=== PATIENT | female | born 1990 ===

== ENCOUNTER 2016-05-28 13:08 | Emergency (ER) | payer MEDICAID ==
[2016-05-28 13:13] VITALS: TEMP 98; BMI 22.4
--- NOTE | 2016-05-28 13:42 | ED PDOC ---
HPI: General Adult Time Seen by Provider: 05/28/16 13:19 Chief Complaint (Nursing): Abdominal Pain Chief Complaint (Provider): with abdominal pain History Per: Patient Additional Complaint(s): Patient is , currently 9 weeks and presents to emergency department with left flank pain that radiates to left lower quadrant that started earlier today. Patient states that last week she had similar symptoms and they lasted about 30 minutes and then resolved. Today is the second recurrence of this pain. She denies any vaginal bleeding, hematuria or dysuria. Patient has had intermittent nausea since beginning of and vomited twice but is able to tolerate liquids and solids. She rates current pain as a 6 out of 10. Past Medical History Reviewed: Historical Data, Nursing Documentation, Vital Signs Vital Signs: Last Vital Signs Temp 98 F 05/28/16 13:12 Pulse 75 05/28/16 13:12 Resp BP 121/59 L 05/28/16 13:12 Pulse Ox 99 05/28/16 14:30 - Medical History PMH: No Chronic Diseases - Surgical History Surgical History: No Surg Hx - Family History Family History: States: No Known Family Hx - Living Arrangements Living Arrangements: With Family - Social History Current smoker - smoking cessation education provided: No Alcohol: None Drugs: Denies - Home Medications Home Medications: Ambulatory Orders Medication Instructions Recorded Nitrofurantoin Macrocrystals 100 mg PO BID #20 tab 05/28/16 [Macrobid] - Allergies Allergies/Adverse Reactions: Allergies Allergy/AdvReac Type Severity Reaction Status Date / Time No Known Allergies Allergy Verified 05/28/16 13:41 Review of Systems ROS Statement: Except As Marked, All Systems Reviewed And Found Negative Constitutional: Negative for: Fever Genitourinary Female: Positive for: Pelvic Pain. Negative for: Dysuria, Frequency, Hematuria, Vaginal Discharge, Vaginal Bleeding Musculoskeletal: Positive for: Back Pain (left flank) Physical Exam - Reviewed Nursing Documentation Reviewed: Yes Vital Signs Reviewed: Yes - Physical Exam Appears: Positive for: Well, Non-toxic, No Acute Distress Skin: Negative for: Rash Eye Exam: Positive for: Normal appearance, EOMI, PERRL Cardiovascular/Chest: Positive for: Regular Rate, Rhythm Respiratory: Positive for: Normal Breath Sounds Gastrointestinal/Abdominal: Positive for: Tenderness (suprapubic tenderness with no rebound or guarding). Negative for: Distended, Guarding, Rebound Back: Positive for: L CVA Tenderness (mild). Negative for: R CVA Tenderness, Vertebral Tenderness Extremity: Negative for: Pedal Edema Neurologic/Psych: Positive for: Alert, Oriented - Laboratory Results Result Diagrams: 05/28/16 13:50 05/28/16 13:50 Urine POC: Positive Urine dip results: Positive for: Leukocyte Esterase (small), Blood (trace). Negative for: Nitrate, Ketones, Glucose, Bilirubin, Protein - ECG O2 Sat by Pulse Oximetry: 99 Pulse Ox Interpretation: Normal - Other Rad OB Transvaginal US X-Ray: Read By Radiologist X-Ray Interpretation: see below Medical Decision Making Medical Decision Makin25 year old, 9 weeks with abdominal pain. Plan: CBC CMP Beta quant OB US IVF Urine dip US: IMPRESSION: Single live intrauterine gestation with mean gestational age of 12 weeks and 6 days. The expected date of delivery by ultrasound is 2016. There is a discrepancy of about 2 weeks with the clinical dates. Clinical follow-up is advised. Patient is aware of all diagnostic testing results, all questions answered. Patient given prescription for Macrobid and was instructed in plenty fluids. She was advised she can take Tylenol as needed for pain. [facility] Disposition - Clinical Impression Clinical Impression: Abdominal pain during , Urinary tract infection - Patient ED Disposition Is Patient to be Admitted: No Counseled Patient/Family Regarding: Studies Performed, Diagnosis, Need For Followup, Rx Given - Disposition [facility] Disposition: Routine/Home Disposition Time: 17:03 Condition: STABLE Additional Instructions: Take prescription meds as directed. Plenty of fluids. Tylenol for pain as needed. Follow-up with manager corporate in 1-2 days. Prescriptions: Nitrofurantoin Macrocrystals [Macrobid] 100 mg PO BID #20 tab Instructions: Urinary Tract Infection in Women (ED), Abdominal Pain in (ED) Results - Lab Results Lab Results: 05/28/16 05/28/16 13:50 13:45 WBC 8.1 RBC 4.00 Hgb 11.7 L Hct 34.7 MCV 86.8 MCH 29.4 MCHC 33.8 RDW 13.2 Plt Count 175 MPV 9.4 Neut % (Auto) 70.2 Lymph % (Auto) 19.5 L [place] % (Auto) 8.7 Eos % (Auto) 1.0 Baso % (Auto) 0.6 Neut # 5.7 Lymph # 1.6 [place] # 0.7 Eos # 0.1 Baso # 0.0 Sodium 137 Potassium 4.9 Chloride 104 Carbon Dioxide 20 L Anion Gap 18 BUN 8 Creatinine 0.5 L Est GFR ( Amer) > 60 Est GFR (Non-Af Amer) > 60 Random Glucose 93 Calcium 9.1 Total Bilirubin 1.2 AST 50 H ALT 18 Alkaline Phosphatase 72 Total Protein 7.6 Albumin 3.9 Globulin 3.7 Albumin/Globulin Ratio 1.1 Beta HCG, Quant 486261.00 Urine Color Yellow Urine Clarity Cloudy Urine pH 7.0 Ur Specific [place] 1.012 Urine Protein 30 Urine Glucose (UA) Neg Urine Ketones Negative Urine Blood Negative Urine Nitrate Negative Urine Bilirubin Negative Urine Urobilinogen 0.2-1.0 Ur Leukocyte Esterase Large Urine Microscopic WBC 85 H Ur Squamous Epith Cells 23 H Calcium Oxalate Crystal Few H Urine Bacteria Rare Hyaline Casts 3-5 H Urine Sperm (Auto) Rare H
[2016-05-28] MEDS ORDERED: Sodium Chloride 0.9% 1,000 ML IV STA (13:44)
[2016-05-28 14:13] LABS: EOS # 0.1 K/uL (0.0-0.7); MONO # 0.7 K/uL (0.0-0.8)
[2016-05-28 14:18] LABS: BASO % 0.6 % (0.0-2.0); HEMATOCRIT 34.7 % (34.0-47.0); LYMPH # 1.6 K/uL (1.0-4.3); LYMPH % 19.5 % (20.0-40.0); MEAN CELL VOLUME 86.8 fl (81.0-99.0); MEAN CORPUSCULAR HEMOGLOBIN 29.4 pg (27.0-31.0); MEAN CORPUSCULAR HGB CONC 33.8 g/dL (33.0-37.0); MEAN PLATELET VOLUME 9.4 fl (7.2-11.7); MONO % 8.7 % (0.0-10.0); NEUT # 5.7 K/uL (1.8-7.0); NEUT % 70.2 % (50.0-75.0); NRBC % 0.1 % (0.0-0.0); RED CELL DISTRIBUTION WIDTH 13.2 % (11.5-14.5); WHITE BLOOD COUNT 8.1 K/uL (4.8-10.8)
[2016-05-28 14:18] LABS: URINE BILIRUBIN NEGATIVE (NEGATIVE); URINE BLOOD NEGATIVE (NEGATIVE); URINE CALCIUM OXALATE CRYSTALS FEW /hpf (<OCC); URINE COLOR YELLOW (YELLOW); URINE GLUCOSE (UA) NEG (Normal); URINE KETONE NEGATIVE (NEGATIVE); URINE LEUKOCYTE ESTERASE LARGE Leu/uL (Negative); URINE PROTEIN 30 mg/dL (NEGATIVE); URINE UROBILINOGEN 0.2-1.0 mg/dL (0.2-1.0); WBC URINE 85 /hpf (0-5)
[2016-05-28 14:20] LABS: URINE BACTERIA RARE (<OCC)
[2016-05-28 14:23] LABS: ALB/GLOB RATIO 1.1 (1.0-2.1); ALKALINE PHOSPHATASE 72 U/L (38-126); ALT/SGPT 18 U/L (9-52); AST/SGOT 50 U/L (14-36); BILIRUBIN,TOTAL 1.2 mg/dl (0.2-1.3); BLOOD UREA NITROGEN 8 mg/dl (7-17); CALCIUM 9.1 mg/dL (8.4-10.2); CARBON DIOXIDE 20 mmol/L (22-30); CHLORIDE 104 mmol/L (98-107); GFR AFRICAN-AMERICAN > 60; GLUCOSE,RANDOM 93 mg/dL (65-105); SODIUM 137 mmol/l (132-148); TOTAL PROTEIN 7.6 G/DL (6.3-8.2)
[2016-05-28 14:26] LABS: POTASSIUM 4.9 MMOL/L (3.6-5.0)
--- NOTE | 2016-05-28 16:55 | US ---
PROCEDURE: OB Pelvic Ultrasound HISTORY: with abdominal pain COMPARISON: None available. FINDINGS: UTERUS: Gestational sac: Single intrauterine gestation. Heart rate: 155 bpm. age (Ultrasound estimated): 12 weeks and 6 days Hilary-gestational hemorrhage: None. Date of delivery (Ultrasound estimated) : 12/04/2016 Uterus measures 11.9 x 9.5 x 10.4 cm. Normal in size and appearance. CERVIX: Long and closed. No cervical abnormality seen. RIGHT OVARY: Not visualized. LEFT OVARY: Not visualized. FREE FLUID: None. OTHER FINDINGS: None. IMPRESSION: Single live intrauterine gestation with mean gestational age of 12 weeks and 6 days. The expected date of delivery by ultrasound is 12/04/2016. There is a discrepancy of about 2 weeks with the clinical dates. Clinical follow-up is advised. S
[2016-05-28 17:08] VITALS: BP 120/80; PULSE 80; RESP 18
[2016-05-28 17:09] VITALS: O2SAT 99
== END 2016-05-28 17:10 | disposition home or self-care (01) ==
LOC: H.ER 13:08
DX: O23.40 Unspecified infection of urinary tract in pregnancy, unspecified trimester (principal)

== ENCOUNTER 2016-07-12 21:06 | Emergency (ER) | payer MEDICAID, OTHER ==
[2016-07-12 21:06] VITALS: BMI 22.4
[2016-07-12 21:11] VITALS: BP 127/74; PULSE 74; RESP 18; TEMP 98.7; O2SAT 100
--- NOTE | 2016-07-12 21:38 | ED PDOC ---
HPI: Female Pain Time Seen by Provider: 07/12/16 21:12 Chief Complaint (Nursing): Female Genitourinary Chief Complaint (Provider): , pelvic pain History Per: Patient History/Exam Limitations: no limitations Onset/Duration Of Symptoms: Days (2), Waxing/Waning Current Symptoms Are (Timing): Still Present Quality Of Discomfort: Sharp, "Pain" Associated Symptoms: Back Pain Additional History Per: Patient Additional Complaint(s): 26 y/o female, approx 18 weeks gestation, presents with intermittent left pelvic pain x 2 days. Associated low back pain. Denies fever, nausea/vomiting , chest pain, changes in bowel movements, dysuria, hematuria, vaginal bleeding/ discharge. Abnormal Vaginal Bleeding: No Last Menstral Period: 03/01/16 : 2 Para: 1 Miscarriage: 0 Past Medical History Reviewed: Historical Data, Nursing Documentation, Vital Signs Vital Signs: Last Vital Signs Temp 98.7 F 07/12/16 21:08 Pulse 74 07/12/16 21:08 Resp 18 07/12/16 21:08 BP 127/74 07/12/16 21:08 Pulse Ox 100 07/12/16 21:08 - Medical History PMH: No Chronic Diseases - Surgical History Surgical History: No Surg Hx - Family History Family History: States: Unknown Family Hx - Living Arrangements Living Arrangements: With Family - Home Medications Home Medications: Ambulatory Orders Medication Instructions Recorded Nitrofurantoin Macrocrystals 100 mg PO BID #20 tab 05/28/16 [Macrobid] Nitrofurantoin Macrocrystals 100 mg PO BID #13 cap 07/12/16 [Macrobid] - Allergies Allergies/Adverse Reactions: Allergies Allergy/AdvReac Type Severity Reaction Status Date / Time No Known Allergies Allergy Verified 05/28/16 13:41 Review of Systems ROS Statement: Except As Marked, All Systems Reviewed And Found Negative Genitourinary Female: Positive for: Pelvic Pain Physical Exam - Reviewed Nursing Documentation Reviewed: Yes Vital Signs Reviewed: Yes - Physical Exam Appears: Positive for: Well, Non-toxic, No Acute Distress Head Exam: Positive for: ATRAUMATIC, NORMAL INSPECTION, NORMOCEPHALIC Skin: Positive for: Normal Color Eye Exam: Positive for: Normal appearance ENT: Positive for: Normal ENT Inspection Cardiovascular/Chest: Positive for: Regular Rate, Rhythm Respiratory: Positive for: Normal Breath Sounds Gastrointestinal/Abdominal: Positive for: Bowel Sounds, Soft, Tenderness ( suprapubic, left pelvic. No flank tenderness b/l) Back: Negative for: L CVA Tenderness, R CVA Tenderness Extremity: Positive for: Normal ROM Neurologic/Psych: Positive for: Alert, Oriented - Laboratory Results Result Diagrams: 07/12/16 21:44 07/12/16 21:44 - ECG O2 Sat by Pulse Oximetry: 100 - Progress ED Course And Treament: labs, urine, OB u/s EXAM: US Uterus, Limited CLINICAL HISTORY: 26 years old, female; Pain; Other: Lt pelvic pain; Gestational age or lmp: ; ; Additional info: Approx 18 wks preg, suprapubic/left pelvic pain TECHNIQUE: Real-time ultrasound of the maternal uterus (limited) with image documentation. COMPARISON: No relevant prior studies available. FINDINGS: Fetus: Single live intrauterine gestation. Estimated gestational age of 19 weeks 1 day by measurements. No gross anomaly is appreciated. Position: Variable. Heart rate: heart rate of 144 beats per minute. Placenta: Anterior placenta. No placenta previa or abruption. Amniotic fluid: Normal. Cervix: No cervical dilatation or effacement. Adnexa: Ovaries not visualized. No adnexal masses. Free fluid: No significant free fluid. IMPRESSION: 1. Single live intrauterine gestation. 2. Incidental/non-acute findings are described above. Patient educated on findings, discharged with rx macobid (dose given in ED) Advised follow up [employer] in 2-3 days. Return to ED for worsening/concerning symptoms. Disposition - Clinical Impression Clinical Impression: Urinary tract infection, Abdominal pain during - Patient ED Disposition Is Patient to be Admitted: No Counseled Patient/Family Regarding: Studies Performed, Diagnosis, Need For Followup, Rx Given - Disposition Disposition: Routine/Home Disposition Time: 23:21 Condition: STABLE Prescriptions: Nitrofurantoin Macrocrystals [Macrobid] 100 mg PO BID #13 cap Instructions: Abdominal Pain in (ED), Urinary Tract Infection in Women (ED)
[2016-07-12 22:09] LABS: BASO % 0.5 % (0.0-2.0); EOS # 0.1 K/uL (0.0-0.7); EOS % 1.2 % (0.0-4.0); HEMATOCRIT 33.2 % (34.0-47.0); LYMPH # 1.6 K/uL (1.0-4.3); LYMPH % 17.9 % (20.0-40.0); MEAN CELL VOLUME 90.3 fl (81.0-99.0); MEAN CORPUSCULAR HEMOGLOBIN 29.9 pg (27.0-31.0); MEAN CORPUSCULAR HGB CONC 33.1 g/dL (33.0-37.0); MEAN PLATELET VOLUME 8.6 fl (7.2-11.7); MONO # 0.8 K/uL (0.0-0.8); MONO % 8.8 % (0.0-10.0); NEUT # 6.5 K/uL (1.8-7.0); NEUT % 71.6 % (50.0-75.0); RED CELL DISTRIBUTION WIDTH 14.1 % (11.5-14.5); WHITE BLOOD COUNT 9.1 K/uL (4.8-10.8)
[2016-07-12 22:16] LABS: RBC URINE 5 /hpf (0-3); URINE BACTERIA OCC (<OCC); URINE BILIRUBIN NEGATIVE (NEGATIVE); URINE BLOOD NEGATIVE (NEGATIVE); URINE COLOR YELLOW (YELLOW); URINE GLUCOSE (UA) NEG (Normal); URINE KETONE NEGATIVE (NEGATIVE); URINE LEUKOCYTE ESTERASE LARGE Leu/uL (Negative); URINE PROTEIN NEGATIVE (NEGATIVE); URINE UROBILINOGEN 0.2-1.0 mg/dL (0.2-1.0); WBC URINE 20 /hpf (0-5)
[2016-07-12 22:19] LABS: ALB/GLOB RATIO 1.2 (1.0-2.1); ALKALINE PHOSPHATASE 75 U/L (38-126); ALT/SGPT 32 U/L (9-52); AST/SGOT 23 U/L (14-36); BILIRUBIN,TOTAL 0.1 mg/dl (0.2-1.3); BLOOD UREA NITROGEN 10 mg/dl (7-17); CALCIUM 9.5 mg/dL (8.4-10.2); CARBON DIOXIDE 25 mmol/L (22-30); CHLORIDE 102 mmol/L (98-107); GFR AFRICAN-AMERICAN > 60; GLUCOSE,RANDOM 87 mg/dL (65-105); POTASSIUM 4.4 MMOL/L (3.6-5.0); SODIUM 136 mmol/l (132-148)
--- NOTE | 2016-07-12 23:14 | US ---
EXAM: US Uterus, Limited CLINICAL HISTORY: 26 years old, female; Pain; Other: Lt pelvic pain; Gestational age or lmp: 03/01/16; ; Additional info: Approx 18 wks preg, suprapubic/left pelvic pain TECHNIQUE: Real-time ultrasound of the maternal uterus (limited) with image documentation. COMPARISON: No relevant prior studies available. FINDINGS: Fetus: Single live intrauterine gestation. Estimated gestational age of 19 weeks 1 day by measurements. No gross anomaly is appreciated. Position: Variable. Heart rate: heart rate of 144 beats per minute. Placenta: Anterior placenta. No placenta previa or abruption. Amniotic fluid: Normal. Cervix: No cervical dilatation or effacement. Adnexa: Ovaries not visualized. No adnexal masses. Free fluid: No significant free fluid. IMPRESSION: 1. Single live intrauterine gestation. 2. Incidental/non-acute findings are described above.
== END 2016-07-12 23:30 | disposition home or self-care (01) ==
LOC: H.ER 21:06
DX: O23.40 Unspecified infection of urinary tract in pregnancy, unspecified trimester (principal); R10.2 Pelvic and perineal pain; Z3A.18 18 weeks gestation of pregnancy; O26.892 Other specified pregnancy related conditions, second trimester

== ENCOUNTER 2016-11-01 10:53 | Emergency (ER) | payer OTHER ==
--- NOTE | 2016-11-01 13:11 | OBHP ---
Datetime: 11/01/2016 11:45 IP Adm Impression: , intrauterine IP Admit Plan: Observation/Evaluation Admit Comment, IP Provider: IUP at 35w used a sex toy and had vaginal spotting 1-2h ago. S he was exaimined at [facility] yesterday and also noticed vaginal spotting. No acitve VB. PNC: [facility] - only some labs and songam documented PMH: denies PSH: denies NKA PSoH denies smoking, EOTH drugs POBGYNH: x 1 A: IUP at 35w; not in labor sono ceph/ant placenta PLAN: observe labor progress Pelvic Type - PN: Adequate Extremities - PN: Normal Abdomen - PN: Normal Back - PN: Normal Breast - PN: Not Done Lungs - PN: Normal Heart - PN: Normal Thyroid - PN: Normal Neurologic - PN: Normal HEENT - PN: Normal General - PN: Normal Presentation-Admit: Vertex FHR - Baseline A Provider: 135 Membranes, Provider: Intact Comments, ACOG Physical Exam: ROS: General: no weakness; no fatigue HEENT: no CASANOVA; no visual dist CV: no palpitations; no no CP GI: no N/V no diarhea : no F/U/D MS: No joint pain Pool Provider: Negative IP Hx Assessment: The History has been Reviewed and is Current Vital Signs Provider: Reviewed; Within Normal Limits IP Chief Complaint: Vaginal bleeding NICHD Variability Prov Fetus A: Moderate 6-25bpm NICHD Accel Fetus A IP Provider: [id number] FHR Category Provider Fetus A: Category I NICHD Decel Fetus A IP Provider: None Dilatation, Provider: 0 Genitourinary Exam: Normal DTRs - PN: Normal
--- NOTE | 2016-11-01 13:13 | OBDCSUM ---
Datetime: 11/01/2016 13:05 Discharged to, Provider: Home Follow up at, Provider: gwen quiroz Disch Instr Activity: Normal activity Discharge Time: 11/01/2016 13:05 Follow up in weeks, Provider: gwen quiroz Disch Referrals: None Discharge Comment, Provider: re-echecked at 13:00pm...no cervical change; reactive NST.,..will disch age home and folow up PACAC in 1w; Labor instructions
[2016-11-01 17:27] VITALS: BP 111/66; PULSE 81; RESP 18; TEMP 98.1; O2SAT 100
== END 2016-11-01 13:15 | disposition home or self-care (01) ==
LOC: H.EROB2 10:53
DX: O47.03 False labor before 37 completed weeks of gestation, third trimester (principal); Z3A.35 35 weeks gestation of pregnancy

== ENCOUNTER 2017-07-29 09:43 | Emergency (ER) | payer OTHER ==
[2017-07-29 09:52] VITALS: BMI 26.6
[2017-07-29 10:09] VITALS: O2SAT 98
--- NOTE | 2017-07-29 10:31 | ED PDOC ---
HPI: General Adult Time Seen by Provider: 07/29/17 10:20 Chief Complaint (Nursing): ENT Problem Chief Complaint (Provider): Sore throat History Per: Patient History/Exam Limitations: no limitations Onset/Duration Of Symptoms: Days (3) Current Symptoms Are (Timing): Still Present Additional Complaint(s): Pt. with body aches and sore throat. Able to swallow with the pain. Has a fever since today. Has only taken theraflu for the symptoms. Children both had fevers and were doing well with motrin. No weakness, chest pain, dyspnea, dizziness, nausea, vomit, diarrhea. No dysuria. No headache. Past Medical History Reviewed: Nursing Documentation, Vital Signs Vital Signs: Last Vital Signs Temp 100.4 F H 07/29/17 09:51 Pulse 103 H 07/29/17 09:51 Resp 20 07/29/17 09:51 BP 115/62 07/29/17 09:51 Pulse Ox 98 07/29/17 10:35 - Medical History PMH: No Chronic Diseases Denies: Depression, Diabetes, HTN - Surgical History Surgical History: No Surg Hx - Family History Family History: States: Unknown Family Hx - Living Arrangements Living Arrangements: With Family - Home Medications Home Medications: Ambulatory Orders Medication Instructions Recorded RX: Acetaminophen [Tylenol 325mg 650 mg PO Q6 PRN tab 12/10/16 tab] RX: Docusate [Colace] 100 mg PO BID cap 12/10/16 Metoclopramide [Reglan] 10 mg PO Q8 PRN #15 tab 12/12/16 Ibuprofen [Motrin] 600 mg PO TID 7 Days tab 07/29/17 - Allergies Allergies/Adverse Reactions: Allergies Allergy/AdvReac Type Severity Reaction Status Date / Time No Known Allergies Allergy Verified 07/29/17 10:06 Review of Systems Constitutional: Positive for: Fever. Negative for: Weakness Eyes: Negative for: Vision Change ENT: Positive for: Throat Pain. Negative for: Ear Pain, Nose Pain, Nose Discharge, Nose Congestion Cardiovascular: Negative for: Chest Pain Respiratory: Negative for: Cough, Shortness of Breath Gastrointestinal: Negative for: Nausea, Vomiting, Abdominal Pain, Diarrhea Genitourinary Female: Negative for: Hematuria Musculoskeletal: Negative for: Neck Pain Skin: Negative for: Rash Neurological: Negative for: Weakness, Numbness, Confusion, Dizziness Physical Exam - Reviewed Nursing Documentation Reviewed: Yes Vital Signs Reviewed: Yes - Physical Exam Appears: Positive for: Non-toxic, No Acute Distress Head Exam: Positive for: ATRAUMATIC, NORMAL INSPECTION, NORMOCEPHALIC Skin: Positive for: Normal Color, Warm, DRY Eye Exam: Positive for: EOMI, Normal appearance, PERRL ENT: Positive for: Normal ENT Inspection. Negative for: Nasal Congestion, Pharyngeal Erythema, Tonsillar Exudate Neck: Positive for: Normal, Painless ROM, Supple Cardiovascular/Chest: Positive for: Regular Rate, Rhythm Respiratory: Positive for: CNT, Normal Breath Sounds Gastrointestinal/Abdominal: Positive for: Normal Exam, Soft. Negative for: Tenderness Back: Positive for: Normal Inspection. Negative for: L CVA Tenderness, R CVA Tenderness Extremity: Positive for: Normal ROM. Negative for: Tenderness, Pedal Edema Neurologic/Psych: Positive for: Alert, jigger artisan II-XII, Oriented. Negative for: Motor/Sensory Deficits - ECG O2 Sat by Pulse Oximetry: 98 Pulse Ox Interpretation: Normal - Progress ED Course And Treament: 1152: Stable. AAOx3. Pain free. Tolerated PO. Fu with pcp. Likely viral infection. Similar to her kids. Disposition - Clinical Impression Clinical Impression: Myalgia, Viral infection - Patient ED Disposition Is Patient to be Admitted: No Counseled Patient/Family Regarding: Studies Performed, Diagnosis, Need For Followup, Rx Given - Disposition Referrals: [facility] [Outside] - 07/31/17 Disposition: Routine/Home Disposition Time: 11:53 Condition: STABLE Additional Instructions: Return if not better in 3 days. Prescriptions: Ibuprofen [Motrin] 600 mg PO TID 7 Days tab Instructions: Muscle and Bone Pain (DC) Forms: [facility] ([place]an), [facility] ED School/Work Excuse
[2017-07-29 12:10] VITALS: BP 126/78; PULSE 78; RESP 18; TEMP 97
== END 2017-07-29 12:10 | disposition home or self-care (01) ==
LOC: H.ER 09:43
DX: B34.9 Viral infection, unspecified (principal); M79.1 Myalgia
CPT/HCPCS: 81025; 87070; 87430; 96372; 99282; J1885

== ENCOUNTER 2018-04-09 21:49 | Emergency (ER) | payer OTHER ==
[2018-04-09 21:49] VITALS: BMI 26.6
[2018-04-09 22:07] VITALS: BP 140/78; PULSE 98; RESP 18; TEMP 97.9; O2SAT 99
[2018-04-09] MEDS ORDERED: Oxycodone/Acetaminophen 5/325 mg Tab PO ONE ×2 (22:21→23:05)
[2018-04-09] MEDS ORDERED: Oxycodone/Acetaminophen 5/325 mg Tab ONE (22:30)
--- NOTE | 2018-04-09 22:37 | ED PDOC ---
HPI: Dental Pain/Injury Time Seen by Provider: 04/09/18 22:08 Chief Complaint (Nursing): Dental Pain Chief Complaint (Provider): dental pain History Per: Patient History/Exam Limitations: no limitations Additional Complaint(s): 27 y/o F with no significant PMH who presents with left sided dental pain. Pt states that she was diagnosed with tooth infection 5 days ago. She was given a prescription for Penicillin by her dentist and was told that she needs a root canal. She was having some pain, which increased over the past couple of days. She realized this morning that she had not been taking the Penicillin appropria tely and was only taking it once a day so began taking it appropriately today. She has taken 3 doses so far but the pain is still severe. She took 1600mg PO Motrin last night in order to be able to sleep but was still in pain. Her last dose of Motrin was at 9pm tonight. She comes in due to severe pain. Denies fever, chills, night sweats. She is now having Left sided ear pain since this morning. Past Medical History Reviewed: Historical Data, Nursing Documentation, Vital Signs Vital Signs: Last Vital Signs Temp 97.9 F 04/09/18 22:04 Pulse 98 H 04/09/18 22:04 Resp 18 04/09/18 22:04 BP 140/78 04/09/18 22:04 Pulse Ox 99 04/09/18 22:04 - Medical History PMH: Migraine Denies: Depression, Diabetes, HTN - Family History Family History: States: Unknown Family Hx - Home Medications Home Medications: Ambulatory Orders Medication Instructions Recorded Acetaminophen [Tylenol 325mg tab] 650 mg PO Q6 PRN tab 12/10/16 Docusate [Colace] 100 mg PO BID cap 12/10/16 Metoclopramide [Reglan] 10 mg PO Q8 PRN #15 tab 12/12/16 Ibuprofen [Motrin] 600 mg PO TID 7 Days tab 07/29/17 Cetirizine HCl [Zyrtec] 10 mg PO DAILY #10 capsule 07/31/17 Nitrofurantoin Macrocrystals 100 mg PO BID #14 cap 07/31/17 [Macrobid] Prednisone 50 mg PO DAILY #5 tab 07/31/17 Clindamycin [Cleocin] 450 mg PO TID 7 Days cap 04/09/18 oxyCODONE/Acetaminophen [Percocet 1 tab PO BID #3 tab 04/09/18 5/325 mg Tab] - Allergies Allergies/Adverse Reactions: Allergies Allergy/AdvReac Type Severity Reaction Status Date / Time No Known Allergies Allergy Verified 07/31/17 12:39 Review of Systems Constitutional: Negative for: Fever, Chills ENT: Positive for: Other (toothache) Respiratory: Negative for: Cough Neurological: Negative for: Change in Speech, Dizziness Physical Exam - Reviewed Nursing Documentation Reviewed: Yes Vital Signs Reviewed: Yes - Physical Exam Appears: Positive for: Uncomfortable (crying) Head Exam: Positive for: ATRAUMATIC Skin: Positive for: Normal Color ENT: Positive for: TM Is/Are (normal B/L), Other (multiple dental caries with fillings. Left maxillary 3rd molar w/ mild edema, no increased erythema or swelling. No facial swelling. Mild tenderness on palpation of left mastoid. ). Negative for: Sinus Pain/Drainage, Nasal Congestion, Pharyngeal Erythema, Tonsillar Exudate, Tonsillar Swelling Neck: Positive for: Painless ROM Neurologic/Psych: Positive for: Alert, Oriented - ECG O2 Sat by Pulse Oximetry: 99 Medical Decision Making Medical Decision Making: Percocet 1 tab 5/325mg PO x 1 Clindamycin 450mg PO x 1 Re-evaluation [place] [facility] website queried and patient has no history of narcotic prescriptions. 23:10: re-evaluated, pain has improved slightly stating that it is 9/10 after being > 10 previously. Ordered for an additional Percocet 5/325mg PO x 1. Patient advised to see her dentist tomorrow without fail and to take Percocet as needed for severe pain. Disposition - Clinical Impression Clinical Impression: Dental abscess - Patient ED Disposition Is Patient to be Admitted: No Counseled Patient/Family Regarding: Need For Followup, Rx Given - Disposition Disposition: Routine/Home Disposition Time: 23:08 Condition: STABLE Additional Instructions: Stop taking Penicillin and start taking Clindamycin three times daily for 7 days and complete course. Follow up with your dentist tomorrow morning without fail. Prescriptions: Clindamycin [Cleocin] 450 mg PO TID 7 Days cap oxyCODONE/Acetaminophen [Percocet 5/325 mg Tab] 1 tab PO BID #3 tab Instructions: Tooth Abscess (DC), Dental Pain (DC) Forms: [facility] ([place]), [facility] ED School/Work Excuse Print Language: KEN[place]
== END 2018-04-09 23:18 | disposition home or self-care (01) ==
LOC: H.ER 21:49
DX: K04.7 Periapical abscess without sinus (principal)